=== PATIENT | female | born 1940 | race Two or more races ===

== ENCOUNTER 2023-10-24 10:07 | Emergency (ER) | payer OTHER ==
[~2023-10-24] VITALS: Ht 144.8 cm; Wt 56.4 kg
[2023-10-24 11:04] VITALS: BP 127/69; PULSE 88; RESP 19; TEMP 98.4; O2SAT 96
[2023-10-24 11:32] LABS: Urine Bacteria None Seen /hpf (None Seen)
[2023-10-24 11:49] LABS: Urine Blood Negative /uL (Negative); Urine Clarity Clear (Clear); Urine Color Light-Yellow (Yellow); Urine Protein, UAD TRACE (Negative); Urine Specific Gravity 1.012 (1.001-1.035); Urine Urobilinogen Normal (Negative); Urine WBC 5 /hpf (0 - 5)
[2023-10-24] MEDS: ACETAMINOPHEN 500 MG TAB PO ONE (12:18)
[2023-10-24] MEDS ORDERED: ACET-1080 PO (12:20)
[2023-10-24] MEDS ORDERED: CEPH500C PO (12:20)
[2023-10-24] MEDS ORDERED: PRED20TA2 PO (12:20)
== END 2023-10-24 12:28 | disposition home or self-care (01) ==
LOC: ER 10:14
DX: M51.16 Intervertebral disc disorders with radiculopathy, lumbar region (principal); N30.00 Acute cystitis without hematuria; I10 Essential (primary) hypertension; Z85.828 Personal history of other malignant neoplasm of skin
CPT/HCPCS: 72100; 81001